=== PATIENT | female | born 1955 | race Caucasian/White ===

== ENCOUNTER 2016-07-21 12:36 | Inpatient (IN) | payer MEDICAID ==
[~2016-07-21] VITALS: Ht 152.4 cm; Wt 65.8 kg
--- NOTE | 2016-07-21 12:49 | NUR ---
EKG IN PROGRESS IN TRIAGE
--- NOTE | 2016-07-21 13:15 | NUR ---
PT TO ED WITH PRESSURE LIKE CHEST PAIN SINCE YESTERDAY. PT REPORTS THE PAIN TRAVELS TO HER LEFT ARM AND PT RATES THE PAIN AN 8/10. PT REPORTS HEADACHE WELL SINCE YESTERDAY ALL OVER HER HEAD. PT IS A&O X4, BREATHING E/U, SKIN WARM AND DRY TO TOUCH. PT REPORTS NO N/V/D/C. PT IS PLACED IN GOWN ON CAPACITOR ASSEMBLER WITH CALL LIGHT IN REACH.
--- NOTE | 2016-07-21 13:23 | NUR ---
MSE COMPLETED BY DR HUERTA
[2016-07-21 13:44] LABS: PLATELET COUNT 288 x10^3mcL (130-400); RED CELL DISTRIBUTION WIDTH 13.4 % (11.5-14.5)
--- NOTE | 2016-07-21 13:44 | NUR ---
PT HAS NORMAL SALINE INFUSING AT 100ML/HR PER MD ORDERS. PT MEDICATED WITH ASPIRIN 325MG PO, AND FENTANYL 50-MCG SLOW IV PUSH PER MD ORDERS. PT EDUCATED ON MEDICATION PRIOR TO ADMINISTRATION AND VERBALIZED UNDERSTANDING. PT REMAINS ON CERTIFIED PERSONAL TRAINER WITH CALL LIGHT IN REACH
[2016-07-21 13:51] LABS: CARBON DIOXIDE 29.4 mmol/L (21-32); CHLORIDE SERUM 103 mmol/L (98-107); CREATININE SERUM 0.7 mg/dL (0.6-1.0); GFR1 > 60 mL/min; GLUCOSE SERUM 103 mg/dL (74-106); POTASSIUM SERUM 3.7 mmol/L (3.5-5.1); SODIUM SERUM 144 mmol/L (136-145)
[2016-07-21 13:55] LABS: ALBUMIN 3.7 g/dL (3.4-5.0); ALKALINE PHOSPHATASE 106 U/L (46-116); ALT/SGPT 21 U/L (14-59); AST/SGOT 16 U/L (15-37); BILIRUBIN TOTAL 0.7 mg/dL (0.20-1.00); TOTAL PROTEIN, SERUM 7.9 g/dL (6.4-8.2)
[2016-07-21] MEDS ORDERED: METFORMIN HCL500 MG PO (14:40)
[2016-07-21] MEDS ORDERED: EPZICOM1 TAB (14:40)
[2016-07-21] MEDS ORDERED: SIMVASTATIN40 M1 PO (14:40)
--- NOTE | 2016-07-21 14:42 | NUR ---
PT HAVING NAUSEA, DR HUERTA MADE AWARE
--- NOTE | 2016-07-21 14:53 | NUR ---
PT MEDICATED WITH ZOFRAN 4MG ODT PER MD ORDERS. PT EDUCATED ON MEDICATION PRIOR TO ADMINISTRATION AND VERBALIZED UNDERSTANDING. PT REMAINS ON PROPERTY ACCOUNTANT WITH CALL LIGHT IN REACH
--- NOTE | 2016-07-21 15:42 | NUR ---
REC'D REPORT FROM ER.
--- NOTE | 2016-07-21 15:42 | NUR ---
REPORT GIVEN TO REI SCOTT TO ASSUME CARE OF PT PTS PRIMARY NURSE
--- NOTE | 2016-07-21 15:53 | NUR ---
PT MEDICATED WITH TORADOL 30MG SLOW IV PUSH PER MD ORDERS. PT EDUCATED ON MEDICATION PRIOR TO ADMINISTRATION AND VERBALIZED UNDERSTANDING.
[2016-07-21 16:20] VITALS: BP 131/70
[2016-07-21 16:21] LABS: PHOSPHOROUS 3.3 mg/dL (2.5-4.9)
--- NOTE | 2016-07-21 16:26 | NUR ---
REC'D AOX4, SPEECH CLEAR. DENIES DIZZINES. C/O SCHAEFFER AND CP. ON RA, NO SOB NOTED. ATTACHED TELE 5. NSR. SKIN INTACT. IV SITE WNL. ORIENTED TO ROOM AND SURROUNDINGS. CALL LIGHT WITHIN REACH, PROVIDED REPORT TO JOSE MIGUEL SCOTT FOR CONTINUITY OF CARE
[2016-07-21 16:28] LABS: T3 TOTAL 1.13 ng/mL
[2016-07-21 16:29] LABS: FREE T4 1.02 ng/dL (0.76-1.46); FREE THYROXINE INDEX 2.7 ug/dL (1.4-4.5); T4(THYROXINE) 8.3 ug/dL (4.7-13.3)
[2016-07-21 16:52] LABS: CHOLESTEROL/HDL RATIO 4.6
[2016-07-21 16:58] LABS: microscopic required? NO
[2016-07-21 17:16] LABS: urine erythrocyte NEGATIVE (NEGATIVE)
[2016-07-21 17:27] LABS: AMPHETAMINE QUAL UR NONE DETECTED (NEG <=1000)
--- NOTE | 2016-07-21 17:41 | NUR ---
DR. ROMAN AT BEDSIDE ASSESSING THE PATIENT
--- NOTE | 2016-07-21 19:30 | NUR ---
RECEIVED REPORT FROM SONIA GILLESPIE. AAOX4. DENIES OF SCHAEFFER/DIZZINESS. ON TELE MON 5 SR. DENIES OF ANY CHEST DISCOMFORT. PER PULSES STRONG. NEG ON EDEMA. SCDS APPLIED. IN RA WITH SAT OF 99%. BREATHING EVENLY AND UNLABORED. NO SOB NOTED. LUNGS CTA. BS ACTIVE. ABD SOFT AND NON DISTENDED. LAST BM 07/20/16 FORMED STOOL PER PT. VOIDS FREELY TO THE BATHROOM WITHOUT ANY PAIN. AMBULATES STEADILY. SKIN WARM DRY AND INTACT. IV ON RAC PATENT. SAFETY MEASURES ENSURED. FAMILY IS ON THE BEDSIDE. CALL LIGHT WITHIN REACH. INSTRUCTED PT TO CALL FOR ANY NEEDS/ASSISTANCE. WILL CONT TO MONITOR PT.
[2016-07-21 20:41] VITALS: BP 114/57
[2016-07-21 21:40] VITALS: BP 131/70
--- NOTE | 2016-07-22 05:13 | NUR ---
PT SLEPT COMFORTABLY THROUGH OUT THE NIGHT. WAS IN NO ACUTE DISTRESS OR DISCOMFORT. NO FURTHER COMPLAINTS OF CP WITHIN SHIFT. SAFETY MEASURES WERE ENSURED. CALL LIGHT WITHIN REACH.
[2016-07-22 06:13] LABS: BASOPHIL % 0.8 % (0-2); PLATELET COUNT 251 x10^3mcL (130-400); RED CELL DISTRIBUTION WIDTH 13.4 % (11.5-14.5)
[2016-07-22 06:18] LABS: CALCIUM 8.3 mg/dL (8.5-10.1); CARBON DIOXIDE 25.8 mmol/L (21-32); CHLORIDE SERUM 109 mmol/L (98-107); CREATININE SERUM 0.6 mg/dL (0.6-1.0); GFR1 > 60 mL/min; GLUCOSE SERUM 91 mg/dL (74-106); MAGNESIUM 2.2 mg/dL (1.8-2.4); POTASSIUM SERUM 3.8 mmol/L (3.5-5.1); SODIUM SERUM 145 mmol/L (136-145)
[2016-07-22 07:15] VITALS: BP 104/52
--- NOTE | 2016-07-22 07:25 | NUR ---
AAOX4 ABLE TO VERBALIZE NEEDS WITH CLEAR SPEECH, PERRLA, DENIES NUMBNESS OR TINGLING, SCHAEFFER OR DIZZINESS, CONTINUES TO FEEL "SLIGHT TIGHTNESS" OR HER CHEST, F/U EKG TO BE DONE, SR ON TELE MONITOR, LUNGS CTA, DENIES SOB, ACTIVE BOWEL SOUNDS X4 QUADS, PALPBLE PERIPHERAL PULSES, IV AT RAC INFUSING NS AT 100ML/HR, CALL LIGHT WITHIN REACH, WILL CONTINUE TO PROVIDE CARE.
--- NOTE | 2016-07-22 08:36 | NUR ---
echocardiogram completed
[2016-07-22 09:14] VITALS: BP 118/54
[2016-07-22 12:48] VITALS: BP 100/43
--- NOTE | 2016-07-22 17:24 | NUR ---
JOB COACH REPORTS BP 92/46, HR 59, UPON REASSESSMENT PT'S BP 95/53, PT DENIES ANY DIZZINESS OR FATIGUE, UNDER NO APPARENT DISTRESS, WILL CONTINUE TO MONITOR FOR S&S OF HYPOTENSION. CALL LIGHT WITHIN REACH, FAM AT BEDSIDE.
[2016-07-22 17:27] VITALS: BP 92/46
--- NOTE | 2016-07-22 17:45 | NUR ---
DR ROMAN AT BEDSIDE TO SPEAK WITH PT AND FAM, ALL QUESTIONS ANSWERED, PT UNDER NO APPARENT DISTRESS, STATES OMM INTERVENTION WAS "VERY BENEFICIAL"
--- NOTE | 2016-07-22 19:31 | NUR ---
SITTING UP IN BED, DENIES S&S OF HYPOTENSION, CHEST PAIN 0/10 AT THIS TIME, HAS BEEN TOLERATING MEALS WITHOUT GI DISTRESS, NO OTHER SIGNIFICANT CHANGES NOTED, CARE ENDORSED TO NIGHT NURSE IKE.
--- NOTE | 2016-07-22 19:37 | NUR ---
RECEIVED REPORT FROM SONIA ROSADO. PT RESTING IN BED COMFORTABLY IN NO ACUTE DISTRESS OR DISCOMFORT. AAOX4. DENIES OF SCHAEFFER/DIZZINESS. ON TELE MON 5 SR. DENIES OF ANY CHEST DISCOMFORT. PER PULSES STRONG. NEG ON EDEMA. SCDS APPLIED. IN RA WITH SAT OF 99%. BREATHING EVENLY AND UNLABORED. NO SOB NOTED. LUNGS CTA. BS ACTIVE. ABD SOFT AND NON DISTENDED. LAST BM 07/20/16 FORMED STOOL PER PT. VOIDS FREELY WITHOUT ANY PAIN. AMBULATES STEADILY. SKIN DRY AND INTACT. DENIES OF ANY PAIN AT THIS TIME. IV ON RAC PATENT PATENT WITH NS RUNNING AT 100CC/HR. SAFETY MEASURES ENSURED. INSTRUCTED PT TO CALL FOR ANY NEEDS/ASSISTANCE. IS ON THE BEDSIDE. CALL LIGHT WITHIN REACH. WILL CONT TO MONITOR PT.
[2016-07-22 21:11] VITALS: BP 104/52
--- NOTE | 2016-07-23 05:05 | NUR ---
PT SLEPT COMFORTABLY THROUGH OUT THE NIGHT. NO FURTHER COMPLAINTS OF CP WITHIN SHIFT. WAS IN NO ACUTE DISTRESS OR DISCOMFORT. SAFETY MEASURES WERE ENSURED. CALL LIGHT WITHIN REACH.
[2016-07-23 05:47] VITALS: BP 99/47
--- NOTE | 2016-07-23 07:15 | NUR ---
PT IS AAOX4 ABLE TO COMMUNICATE CLEARLY AND REPORTS CHEST PAIN 4/10 WILL MEDICATE PER EMAR. FOUND ON RA NO SIGNS OF SOB OR ACUTE DISTRESS. FOUND HEPARIN DRIP RUNNING AT 780U/HR, BLEEDING NOTED AT LAC. READJUSTED RATE TO HEPARIN PROTOCOL TO 700U/HR. NS INFUSING AT 50ML/HR. AWAITING FOR PTT RESULTS. BED AT LOW AND CALL LIGHT WITHIN REACH.
--- NOTE | 2016-07-23 07:20 | NUR ---
RECIEVED REPORT FROM BRADEN RN AT BEDSIDE. PT IS AAOX4 ABLE TO COMMUNICATE AND FOLLOW VERBAL ORDRES. FOUND ON RA NO SIGNS OF SOB OR ACUTE DISTRESS. PT DENIES CHEST PAIN AT THIS TIME. BED AT LOW AND CALL LIGHT WITHIN REACH.
--- NOTE | 2016-07-23 07:36 | NUR ---
PTT 75.5 WILL TITRATE HEPARIN DRIP PER PROTOCOL TO DECREASE RATE. PTT IS ORDERED FOR 07/23/16 11:30AM.
[2016-07-23 09:18] VITALS: BP 106/54
--- NOTE | 2016-07-23 10:05 | NUR ---
DR. VILLEGAS IS AWARE OF BP MEDS BEING HELD AND BP 108/54 MAP 66 HR 56.
[2016-07-23] MEDS ORDERED: MOT800 PO (10:58)
[2016-07-23] MEDS ORDERED: BAY PO (10:58)
[2016-07-23 11:17] VITALS: BP 106/54
--- NOTE | 2016-07-23 12:00 | NUR ---
PT IS AAOX4 ABLE TO COMMUNICATE CLEARLY AND FOLLOW VERBAL ORDERS. PT DENIES CHEST PAIN. ON RA NO SIGNS OF SOB OR ACUTE DISTRESS AT THIS TIME. D/D INSTRUCTIONS GIVEN TO PT AND DAUGHTER. PT IS AWARE OF FOLLOE UP APPOINTMENT WITH PCP AND AWARE OF CONTINUED AND RX MEDS. PT IS AWARE RX MED TO BE PICKED UP AT PHARM. RAC IV DC, IV CATH INTACT. NO SIGNS OF BLEEDING AT IV SITE. PT TOLERATED PROCEDURE WELL. PT HAS ALL PERSONAL BELONGINGS. PT WILL BE DC HOME WITH FAMILY. 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
== END 2016-07-23 13:12 | disposition home or self-care (01) | DRG 203 ==
LOC: ED 12:36 → DU 15:20
PROVIDERS: Emergency Medicine; ADMIT Family Medicine
DX: M94.0 Chondrocostal junction syndrome [Tietze] (principal); E78.5 Hyperlipidemia, unspecified; R73.03 Prediabetes; F41.9 Anxiety disorder, unspecified; Z68.28 Body mass index [BMI] 28.0-28.9, adult; Z79.84 Long term (current) use of oral hypoglycemic drugs
CPT/HCPCS: 80307; 82962; 83880; 84439; C9113; J1885; J3010; J7030; Q0092; Q0162

== ENCOUNTER 2018-01-25 16:31 | Emergency (ER) | payer MEDICAID ==
[~2018-01-25] VITALS: Ht 149.9 cm; Wt 64.0 kg
[~2018-01-25 16:31] MED LIST: BAY PO; EPZICOM1 TAB; METFORMIN HCL500 MG PO; MOT800 PO; SIMVASTATIN40 M1 PO
[2018-01-25 16:48] VITALS: Ht 149.9 cm; Wt 64.0 kg
[2018-01-25 18:32] LABS: BASOPHIL % 0.7 % (0-2); PLATELET COUNT 268 x10^3mcL (130-400); RED CELL DISTRIBUTION WIDTH 13.6 % (11.5-14.5)
[2018-01-25 18:41] LABS: CALCIUM 8.4 mg/dL (8.5-10.1); CARBON DIOXIDE 26.1 mmol/L (21-32); CHLORIDE SERUM 103 mmol/L (98-107); CREATININE SERUM 0.7 mg/dL (0.6-1.0); GFR1 > 60 mL/min; GLUCOSE SERUM 144 mg/dL (74-106); POTASSIUM SERUM 3.3 mmol/L (3.5-5.1); SODIUM SERUM 138 mmol/L (136-145)
[2018-01-25 18:47] LABS: ALBUMIN 3.7 g/dL (3.4-5.0); ALKALINE PHOSPHATASE 142 U/L (46-116); ALT/SGPT 23 U/L (14-59); AMYLASE 65 U/L (25-115); AST/SGOT 11 U/L (15-37); BILIRUBIN TOTAL 0.41 mg/dL (0.20-1.00); LIPASE 179 IU/L (73-393); TOTAL PROTEIN, SERUM 7.7 g/dL (6.4-8.2)
[2018-01-25 19:19] LABS: UA SPECIFIC GRAVITY 1.025 (1.005-1.035); microscopic required? YES; urine erythrocyte TRACE (NEGATIVE)
[2018-01-25 20:25] VITALS: BP 117/61
== END 2018-01-25 20:25 | disposition home or self-care (01) ==
LOC: ED 16:31
PROVIDERS: Emergency Medicine
DX: N39.0 Urinary tract infection, site not specified (principal); E78.00 Pure hypercholesterolemia, unspecified; Z88.0 Allergy status to penicillin
CPT/HCPCS: J1885

== ENCOUNTER 2018-02-01 11:14 | Emergency (ER) | payer MEDICAID ==
[~2018-02-01] VITALS: Ht 152.4 cm; Wt 62.6 kg
[2018-02-01 11:17] VITALS: Ht 152.4 cm; Wt 62.6 kg
[2018-02-01 13:02] VITALS: BP 136/70
[2018-02-01 13:20] LABS: UA SPECIFIC GRAVITY 1.015 (1.005-1.035); microscopic required? YES; urine erythrocyte 2+ (NEGATIVE)
== END 2018-02-01 13:02 | disposition home or self-care (01) ==
LOC: ED 11:14
PROVIDERS: Emergency Medicine
DX: N39.0 Urinary tract infection, site not specified (principal); E78.00 Pure hypercholesterolemia, unspecified; R73.03 Prediabetes
CPT/HCPCS: 82962

== ENCOUNTER 2018-03-15 07:39 | Emergency (ER) | payer SELFPAY, OTHER, MEDICAID | END 2018-03-15 08:15 | disposition home or self-care (01) | LOC: ED 07:39 ==